=== PATIENT | female | born 1955 | race Caucasian/White ===

== ENCOUNTER → 2017-06-29 | Outpatient (CLI) | payer BC ==
[2015-06-05 10:35] VITALS: BP 111/67
--- NOTE | 2017-06-29 08:44 | US ---
History: Right upper quadrant pain and nausea Study: Ultrasound of the right upper quadrant of the abdomen Findings: The liver is of normal size without mass. The right kidney measures 8.5 by 3.3 x 4.9 cm without hydronephrosis or mass or calculus. The gallbladder is normal in size with a thickened wall measuring 4 mm. No stone or sludge is demonst rated. The common hepatic duct measures 4.8 mm. There are gallbladder wall polyps. The visualized pancreas is unremarkable. There is no free fluid. The IVC is patent. Impression: Hyperplastic cholecystosis Reported By:
== END | disposition home or self-care (01) | DRG 392 ==
LOC: RAD 07:59
PROVIDERS: ATTEND Internal Medicine
DX: R10.11 Right upper quadrant pain (principal); K81.9 Cholecystitis, unspecified
CPT/HCPCS: 76705

== ENCOUNTER → 2017-07-28 | Outpatient (CLI) | payer BC ==
[2015-06-05 10:35] VITALS: BP 111/67
--- NOTE | 2017-07-28 12:26 | NM ---
HISTORY: Right upper quadrant abdominal pain and nausea Study: Nuclear medicine HIDA scan with ejection fraction Comparison: None Technique: Multiple scintigraphic images of the abdomen were obtained the intravenous administration of 5.4 mCi of technetium labeled Choletec. Following distention of the gallbladder with radiotracer 8 oz of Ensure Plus was administered to the patient in the normal fashion. An estimated gallbladder ejection fraction was calculated based on th e physiologic response of this fatty meal. Findings: Homogeneous uptake of radiotracer is seen throughout the liver. This intrabiliary ductal system is o bserved normally. The common hepatic and common bile duct grossly appear unremarkable with normal bi liary-bowel transit. The gallbladder is observed to fill normally. After the IV administration of Kinevac, a normal gallbladder ejection fraction of 44.4% (normal > 35% ) is observed. IMPRESSION: 1. No evidence of acute cholecystitis. 2. Normal gallbladder ejection fraction of 44.4%. Reported By:
== END ==
LOC: RAD 08:55
PROVIDERS: ATTEND Internal Medicine
DX: R10.11 Right upper quadrant pain (principal)
CPT/HCPCS: 78227; A9537

== ENCOUNTER → 2017-10-04 | Outpatient (CLI) | payer BC ==
[2015-06-05 10:35] VITALS: BP 111/67
--- NOTE | 2017-10-04 13:21 | MG ---
HISTORY: Right breast pain Comparison: 08/25/2016 Diagnostic bilateral mammogram FINDINGS: Bilateral CC and MLO projections of the right and left breast were obtained. Scattered fibroglandula r tissue is seen to be present. No significant architectural distortion, mass or clustered microcalc ifications can be observed to suggest malignancy. No skin thickening or nipple retraction is appreci ated. No pathological lymphadenopathy can be identified. Benign-appearing calcifications scattered throughout the right and left breasts are observed. There is a stable nodule within the lower and sli ghtly inner quadrant of the right breast, proven to be a simple parenchymal cyst on prior targeted so nography. IMPRESSION: NO RADIOGRAPHIC EVIDENCE OF MALIGNANCY. ACR CATEGORY 2 - benign findings. FOLLOW-UP EXAM 1 YEAR. Diagnostic CAD was utilized and reviewed. * 0 (ZERO) - ASSESSMENT INCOMPLETE; ADDITIONAL IMAGING IS NEEDED. * 1/1 (ONE) - NEGATIVE. * 2/II (TWO) - BENIGN FINDINGS. * 3/III (THREE) - PROBABLY BENIGN FINDING; SHORT INTERVAL FOLLOW-UP SUGGESTED. * 4/IV (FOUR) - SUSPICIOUS ABNORMALITY; BIOPSY SHOULD BE CONSIDERED. * 5/V - HIGHLY SUSPICIOUS OF MALIGNANCY; BIOPSY SHOULD BE PERFORMED. A NEGATIVE X-RAY REPORT SHOULD NOT DELAY BIOPSY IF A DOMINANT OR CLINICALLY SUSPICIOUS MASS IS PRESENT; 4 TO 8 PERCENT OF CANCERS ARE NOT IDENTIFIED BY X-RAY. A NEGA TIVE REPORT MAY REINFORCE THE CLINICAL IMPRESSION. ADENOSIS AND DENSE BREASTS MAY OBSCURE AN UNDERLY ING NEOPLASM. Reported By:
== END ==
LOC: RAD 12:25
PROVIDERS: ATTEND Internal Medicine
DX: Z12.31 Encounter for screening mammogram for malignant neoplasm of breast (principal)
CPT/HCPCS: 77067